=== PATIENT | female | born 1995 ===

== ENCOUNTER 2018-08-21 15:22 | Emergency (ER) | payer BC ==
--- OUTSIDE RECORDS SUMMARY | 2018-08-21 16:02 | XMS REPORT ---
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 Marshal Lobo PayID: [id number] [address] [address] [place] [address] Problems Description No Information Family History Date Family Member(s) Problem(s) Comments Father 63 Father Anxiety Mother 54 Mother No Current Problems Children None Social History Type Date Description Comments Education Highest level completed, 12th taking a gap year in grade [employer]. A's in the last year of college. 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 Cigarette Use Patient is a current 2 cigarettes a day. Used cigarette smoker, smokes to smoke a ppd until every day 07/2016. ETOH Use Denies alcohol use Exercise Type/Frequency Exercises regularly 3-4 times weekly. yoga, pilates, weight training. 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 Contraceptive T380a Fluvoxamine 04/13/ Active Tablets 100mg 90tab take 1 Ania Maleate 2014 s tablet by Brandy, mouth CYBER INCIDENT HANDLER once daily Proair HFA / Active Aerosol 108(90Base 8.500 2 puffs Hernesto F. 0000 ) mcg/Act gm every 4 Shallish, hours as M.D. 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 Levaquin 11/25/ Hx Tablets 500mg 10tab 1 by [email or web address] Carlie Strauss 2016 - s mouth Daysi, 10/30/ every day M.D. 2017 x 10 Prednisone 11/25/ Hx Tablets 20mg 8tabs 2 by [email or web address] Carlie Strauss 2016 - mouth x 4 Daysi, 11/26/ days M.D. 2016 Off Work Note 11/25/ Hx medical [email or web address] Carlie Strauss 11/25-05/06 2016 - excuse. Daysi, 10/30/ M.D. 2017 Augmentin 11/22/ Hx Tablets 875-125mg 20tab 1 by [email or web address] Paula 2015 - s mouth Guilherme, 10/30/ twice a CYBER INCIDENT HANDLER 2016 day with food x 10d Sulfamethoxazole 10/06/ Hx Tablets 800-160mg 14tab 1 by N39.0 Kathy /Trimethoprim DS 2015 - s mouth Len, 10/13/ twice a Afnp-C 2015 day x 7 days Luvox CR / Hx Caps ER 150mg 60cap 1 tab Tomasa 0000 - 24HR s twice a [place], 12/10/ day M.D. 2015 Flax Seed Oil / Hx Capsules 1000mg 1 by Unknown 0000 - mouth 10/22/ twice a 2018 day Medications Administered in Office Medication Date Status Form Strength Qnty SIG Indications Ordering Provider Brief Administered Injection Ania Emotional/Beh 018 NAUN NavaP av Assessment W/ Scoring Doc Per Standard Inst Vital Signs Date Vital Result Comment 08/18/2018 BP Systolic 122 mmHg BP Diastolic 74 mmHg Heart Rate 80 /min Body Temperature 98.6 F Respiratory Rate 16 /min Height 66 inches 5'6" Weight 134.00 lb BMI (Body Mass Index) 21.6 kg/m2 02/16/2018 BP Systolic 120 mmHg BP Diastolic 58 mmHg Heart Rate 82 /min Body Temperature 99.3 F Respiratory Rate 16 /min Height 66 inches 5'6" Weight 135.38 lb BMI (Body Mass Index) 21.8 kg/m2 11/04/2017 BP Systolic 106 mmHg BP Diastolic 70 mmHg Heart Rate 76 /min Body Temperature 97.9 F Respiratory Rate 18 /min Height 66 inches 5'6" Weight 141.00 lb BMI (Body Mass Index) 22.8 kg/m2 10/22/2017 BP Systolic 114 mmHg BP Diastolic 78 mmHg Heart Rate 76 /min Body Temperature 98.2 F Respiratory Rate 16 /min Height 66 inches 5'6" Weight 141.38 lb BMI (Body Mass Index) 22.8 kg/m2 10/30/2016 BP Systolic 110 mmHg BP Diastolic 78 mmHg Heart Rate 84 /min Body Temperature 98.1 F Respiratory Rate 16 /min Height 66 inches 5'6" Weight 146.00 lb BMI (Body Mass Index) 23.6 kg/m2 Body Mass Index Percentile 99 % 11/26/2015 BP Systolic 104 mmHg BP Diastolic 60 mmHg Heart Rate 102 /min Body Temperature 99.0 F Respiratory Rate 16 /min Height 66 inches 5'6" Weight 131.25 lb BMI (Body Mass Index) 21.2 kg/m2 11/23/2015 BP Systolic 110 mmHg BP Diastolic 80 mmHg Heart Rate 68 /min Body Temperature 98.1 F Respiratory Rate 16 /min Height 66 inches 5'6" Weight 131.00 lb BMI (Body Mass Index) 21.1 kg/m2 10/22/2015 BP Systolic 120 mmHg BP Diastolic 80 mmHg Heart Rate 64 /min Body Temperature 98.6 F Respiratory Rate 16 /min Height 66 inches 5'6" Weight 137.00 lb BMI (Body Mass Index) 22.1 kg/m2 10/06/2015 BP Systolic 120 mmHg BP Diastolic 70 mmHg Heart Rate 60 /min Body Temperature 98.0 F Respiratory Rate 16 /min Height 66 inches 5'6" Weight 142.00 lb BMI (Body Mass Index) 22.9 kg/m2 04/12/2015 BP Systolic 100 mmHg BP Diastolic 70 mmHg Heart Rate 80 /min Body Temperature 98.0 F Respiratory Rate 16 /min Height 66 inches 5'6" Weight 158.00 lb BMI (Body Mass Index) 25.5 kg/m2 Body Mass Index Percentile 83 % Weight Percentile 88th Height Percentile 75 % Results Test Date Test Result H/L Range Note Laboratory test 08/18/2018 Quickstrep negative Negative finding Laboratory test 02/16/2018 Cytology Thinprep SEE RESULT BELOW 1 finding w/rfx(cmc) Ua - Micro (Fma) 10/22/2017 Appearance unable to dip Color pt took azo WBC (Fma,Centrex) 1-2 RBC 0-1 Epith occ /Lpf Bacteria trace /Hpf Laboratory test 10/22/2017 Urine Culture And SEE RESULT BELOW 2 finding Sensitivities Complete Blood Count 11/27/2015 WBC 7.7 x10^3/UL 3.6-9.6 RBC 4.90 x10^6/UL 3.90-5.70 HGB 14.4 g/dL 12.1-17.2 HCT 43 % 36-50 MCV 88.0 fL 82.2-97.4 MCH 29.3 pg 27.6-33.3 MCHC 33.3 g/dL 33.0-35.5 RDW 13.3 % 11.6-13.7 PLT 335 x10^3/UL 150-400 MPV 7.1 fL Low 7.4-10.4 Gran # 5.4 x10^3/UL 1.5-7.2 Lymph# 2.1 x10^3/UL 0.7-4.9 [place]# 0.2 x10^3/UL 0.1-0.9 Gran % 68.6 % 42.2-75.2 Lymph % 27.7 % 20.5-51.1 [place]% 3.7 % 1.7-9.3 Comprehensive Metabolic Prof 11/27/2015 Sodium 139 mEq/L 134-149 Potassium 4.2 mEq/L 3.6-5.5 Chloride 101 mEq/L 94-112 Carbon Dioxide 29 mEq/L 21-32 Glucose 88 mg/dL 70-105 BUN 7 mg/dL 6-26 Creatinine 0.6 mg/dL 0.6-1.4 BUN/Creat Ratio 11.7 CALC 8.0-36.0 Calcium 9.4 mg/dL 8.6-10.2 Total Protein 7.4 g/dL 6.4-8.3 Albumin 4.0 g/dL 3.8-5.5 Globulin 3.4 g/dL 2.0-4.8 A/G Ratio 1.2 CALC 0.6-2.3 Alk. Phosphatase 67 U/L 30-110 Alt (SGPT) 11 U/L 7-35 Ast (Sgot) 18 U/L 5-34 Total Bilirubin 0.4 mg/dL 0.2-1.3 GFR Non- >60 ml/min/1.73m^ >=60 GFR >60 ml/min/1.73m^ >=60 Ebv Acute Infection Antibodies 11/27/2015 Ebv Ab Vca, IgM <36.0 U/mL 0.0- 35.9 3, 4 Profile Ebv Early Antigen Ab, IgG 83.3 U/mL High 0.0-8.9 3, 5 Ebv Ab Vca, IgG >600.0 U/mL High 0.0-17.9 3, 6 Ebv Nuclear Antigen Ab, IgG 221.0 U/mL High 0.0-17.9 3, 7 Interpretation: See Comment: 3, 8 Laboratory test finding 11/27/2015 Monospot (Fma/Centrex) NEGATIVE Aerobic Bacterial 11/26/2015 Aerobic Bacterial Culture Final report 9, 10 Culture Result 1 See Comment: 9, 11 Laboratory test finding 11/23/2015 Quickstrep NEGATIVE Negative Throat - Beta Strep Fma NEG @ 48 HRS CBC Electronic ([facility]) 10/22/2015 WBC 6.0 3.6-9.6 RBC 4.41 3.90-5.70 Hemoglobin (Fma/CMC/CTX) 12.7 g/dL 12.1 - 17.2 Hematocrit (Fma/CMC/CTX) 38.9 % 36.1 - 50.3 Platelets 271 10^3/ul 150-400 Lymph% 24.3 % 17.0-48.0 Mixed% 4.2 Neutrophils % 71.5 Mean Corpuscular Vol 88 82.2-97.4 Mean Corpuscular Hemoglobin 28.8 27.6-33.3 Mean Corpuscular Hemo Concen 32.7 32.0-36.0 RDW 13.8 High 11.6-13.7 Mean Platelet Volume 7.0 5.5-11.0 Ua - Micro ([facility]) 10/06/2015 Appearance SLIGHTLY CLOUDY Color YELLOW Glucose, Urine (Fma/CMC/CTX) NEG Bilirubin ICTO:NEG Ketones NEG SP Grav 1.020 Blood LARGE PH 7.0 Protein SSA:NEG Urobil 0.2 Nitrite NEG Leukocytes (Fma/CMC/Centrex) LARGE Hyaline - /Lpf Granular - /Lpf WBC (a,Centrex) 35-40 RBC 35-40 Mucus - /Lpf Epith FEW /Lpf Bacteria 2-3+ /Hpf Amorphous - /Lpf Crystals, Fluid (Fma/CMC/CTX) - Z#Comments - Laboratory test finding 04/12/2015 Vitamin D25 48 30-100 Comprehensive Metabolic Prof 04/12/2015 Sodium 141 mEq/L 134-149 Potassium 4.0 mEq/L 3.6-5.5 Chloride 105 mEq/L 94-112 Carbon Dioxide 26 mEq/L 21-32 Glucose 78 mg/dL 70-105 BUN 12 mg/dL 6-26 Creatinine 0.7 mg/dL 0.6-1.4 BUN/Creat Ratio 17.1 CALC 8.0-36.0 Calcium 9.0 mg/dL 8.6-10.2 Total Protein 7.1 g/dL 6.4-8.3 Albumin 4.5 g/dL 3.8-5.5 Globulin 2.6 g/dL 2.0-4.8 A/G Ratio 1.7 CALC 0.6-2.3 Alk. Phosphatase 66 U/L 30-110 Alt (SGPT) 12 U/L 7-35 Ast (Sgot) 18 U/L 5-34 Total Bilirubin 0.3 mg/dL 0.2-1.3 Laboratory test finding 04/12/2015 Free T4 0.96 ng/dL 0.75-1.54 TSH 0.73 mIU/L 0.50-6.00 CBC Electronic ([facility]) 04/12/2015 WBC 5.1 3.6-9.6 RBC 4.46 3.90-5.70 Hemoglobin (Fma/CMC/CTX) 13.1 g/dL 12.1 - 17.2 Hematocrit (Fma/CMC/CTX) 38.6 % 36.1 - 50.3 Platelets 265 10^3/ul 150-400 Lymph% 38.1 % 17.0-48.0 Mixed% 6.9 Neutrophils % 55.0 Mean Corpuscular Vol 87 82.2-97.4 Mean Corpuscular Hemoglobin 29.5 27.6-33.3 Mean Corpuscular Hemo Concen 34.1 32.0-36.0 RDW 13.7 11.6-13.7 Mean Platelet Volume 6.2 5.5-11.0 1 SEE RESULT BELOW Name: NARDA LOBO : [address]: Ania Nava NP Acct: [id number] Unit: [id number] AGE: 22 Location: [facility] Re02/17/18 SEX: F Status: REG REF SPEC: [id number] DEEPIKA: 02/16/18-[address] [facility] [address]: Ania Nava NP REQ: [id number] RECD: 02/17/18 STATUS: SOUT _ ORDERED: TP IMAGE ANALYS, HPV 16/18 GENE COMMENTS: [id number] Negative for Intraepithelial lesion or Malignancy A. Ectocervical/Endocervical Specimen Adequacy: Satisfactory of evaluation Transformation zone component identified Patient Information: HPV: Thin Layer Pap Test w/reflex to high risk HPV RNA testing when ASCUS HPV 16/18 Genotype Reflex Actual Specimen Date: 02/16/18 Last Menstrual Date: 12/31/17 ?: N Post Menopausal?: N Hysterectomy?: N Previous Abnormal Pap Smears?:N Signed by and Reported on: CRYSTAL Bear(ASCP) 1418 This Pap test was evaluated with the assistance of the CoullPrep Test Imaging System. Due to cytologic findings at the radiation oncologist microscope, comprehensive manual rescreening by a Woodyard Crane Operator may be required. The Pap Smear is a screening test designed to aid in the detection of premalignant and malignant conditions of the uterine cervix. It is not a diagnostic procedure and should not be used as the sole means of detecting cervical cancer. Both false- positive and false- negative reports do occur. Depending on your risk status, a Pap smear should be obtained and evaluated every 1-3 years. END OF REPORT DEPARTMENT OF PATHOLOGY, [address] [place] [address] Eric Brar M.D. Director [facility] # [id number] 2 SEE RESULT BELOW Name: NARDA LOBO : [address]: Alexandra Luo NP Acct: [id number] Unit: [id number] AGE: 22 Location: [facility] Re10/22/17 SEX: F Status: REG REF SPEC: [id number] DEEPIKA: 10/22/17-[address] [facility] [address]: Alexandra Luo NP REQ: [id number] RECD: 10/22/17 STATUS: COMP _ SOURCE: URINE SPDESC: ORDERED: Urine Culture COMMENTS: 1 fiore urine c s tube Procedure Result Reported Site Urine Culture Final 10/23/17- 1722 ML No growth of clinically significant organisms * ML - MAIN LAB ([facility]) . END OF REPORT * ML=Testing performed at Main Lab DEPARTMENT OF PATHOLOGY, [address] [place] [address] Eric Brar M.D. Director [facility] # [id number] 3 1 SST 4 Negative <36.0 Equivocal 36.0 - 43.9 Positive >43.9 5 Hepatitis A, Hepatitis C and HIV antibodies may cross-react with this assay. Negative < 9.0 Equivocal 9.0 - 10.9 Positive >10.9 6 Negative <18.0 Equivocal 18.0 - 21.9 Positive >21.9 7 Negative <18.0 Equivocal 18.0 - 21.9 Positive >21.9 8 EBV Interpretation Chart Interpretation EBV-IgM EA(D)-IgG VCA-IgG EBNA-IgG EBV Seronegative - - - - Early Phase + - - - Acute Primary + +or- + - Infection Convalescence/Past - +or- + + Infection Reactivated +or- + + + Infection + Antibody Present - Antibody Absent 9 SRC:bilateral tonsils 1 co alcaraz swab 10 Source of Specimen: bilateral tonsils 1 co 11 Source of Specimen: bilateral tonsils 1 co Routine respiratory gloria Procedures Date CPT Code Description Status 02/16/2018 36065 Brief Emotional/Behav Assessment W/ Scoring Doc Per Completed Standard Inst 10/22/2015 75103 Finger Or Heel Stick Completed Encounters Type Date Location Provider CPT E/M Dx Office Visit 02/16/2018 6:00p Main Office ESTELLA Cerna 34617 N64.4 F60.5 D69.3 Z01.411 Z13.89 Office Visit 11/04/2017 3:45p [facility] Office ESTELLA Cerna 91946 N64.4 Office Visit 10/22/2017 2:15p [place] [address] R30.0 N39.0 Office Visit 10/30/2016 9:10a [facility] Office Carlie Tavarez M.D. 00388 F60.5 Office Visit 11/26/2015 6:20p Main Office Carlie Tavarez M.D. 47097 J03.80 Office Visit 11/23/2015 11:00a Main Office ESTELLA Shannon 59239 J03.80 Office Visit 10/22/2015 4:00p Main Office Carlie Tavarez M.D. 20822 F60.5 D69.3 F17.210 Office Visit 10/06/2015 10:00a Main Office Jude Reynoso 97882 N39.0 Office Visit 04/12/2015 2:40p [facility] Office Carlie Tavarez M.D. 85194 301.4 268.9 287.31 Plan of Care 08/18/2018 - Ania Brandy, FNPJ02.9 Acute pharyngitis, unspecifiedAllComments:~B_~U_Medication Management~b_~u_ Patient Understands medications he 's taking? Yes No Are there Barriers to Adherence? Yes No Has the patient been asked about herbal supplements and therapies, and OTC meds? Yes No As always, we strongly encourage a healthy diet and makingphysical activity a part of your every day life. If you have questions about how or where to start, please contact the office.
--- OUTSIDE RECORDS SUMMARY | 2018-08-21 16:02 | XMS REPORT ---
:1995 External Reference #:[id number] Author Organization [facility] Address [address] [place] [address] Phone [phone] Care Team Providers Name Role Phone Carlie Tavarez Care Team Information Nurse Ldr Unavailable Carlie Tavarez Primary Care Physician Unavailable Payers Type Date Identification Numbers Payment Provider Subscriber Commercial Policy Number: [id number] Out Of Area [facility] Marshal Lobo PayID: [id number] [address] [address] [place] [address] Problems Description No Information Family History Date [...] sleeps 7 hours a night 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 Contraceptive T380a Fluvoxamine 04/13/ Active Tablets 100mg 90tab take 1 Ania Maleate 2014 s tablet by Brandy, mouth SCIENCE CONSULTANT once daily Proair HFA / Active Aerosol 108(90Base 8.500 2 puffs Hernesto F. 0000 ) mcg/Act gm every 4 Shallish, hours as M.D. 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 Levaquin 11/25/ Hx Tablets 500mg 10tab 1 by [email or web address] Carlie Strauss 2015 - s mouth Daysi, 10/30/ every day M.D. 2017 x 10 Prednisone 11/25/ Hx Tablets 20mg 8tabs 2 by J03.80 Carlie Strauss 2016 - mouth x 4 Daysi, 11/26/ days M.D. 2015 Off Work Note 11/25/ Hx medical Gonzales Strauss 11/25-05/06 2016 - excuse. Daysi, 10/30/ M.D. 2016 Augmentin 11/22/ Hx Tablets 875-125mg 20tab 1 by J03.80 Paula 2015 - s mouth Guilherme, 10/30/ twice a SCIENCE CONSULTANT 2016 day with food x 10d Sulfamethoxazole 10/06/ Hx Tablets 800-160mg 14tab 1 by N39.0 Kathy /Trimethoprim DS 2015 - s mouth Len, 10/13/ twice a Afnp-C 2015 day x 7 days Luvox CR / Hx Caps ER 150mg 60cap 1 tab Tomasa 0000 - 24HR s twice a [place], 12/10/ day M.D. 2015 Flax Seed Oil / Hx Capsules 1000mg 1 by Unknown 0000 - mouth 10/22/ twice a 2018 day Medications Administered in Office Medication Date Status Form Strength Qnty SIG Indications Ordering Provider Brief Administered Injection Ania Emotional/Beh 018 Brandy, SCIENCE CONSULTANT av Assessment W/ Scoring Doc Per Standard Inst Vital Signs Date Vital Result Comment 08/20/2018 BP Systolic 102 mmHg BP Diastolic 62 mmHg Heart Rate 88 /min Body Temperature 98.4 F Height 66 inches 5'6" Weight 131.00 lb BMI (Body Mass Index) 21.1 kg/m2 08/18/2018 BP Systolic 122 mmHg BP Diastolic [...] Test Result H/L Range Note Laboratory test 08/20/2018 Quickstrep negative Negative finding Laboratory test 08/18/2018 Quickstrep negative Negative finding [...] 5.4 x10^3/UL 1.5-7.2 Lymph# 2.1 x10^3/UL 0.7-4.9 [place]# 0.2 x10^3/UL 0.1-0.9 Gran % 68.6 % 42.2-75.2 Lymph % 27.7 % 20.5-51.1 [place]% 3.7 % 1.7-9.3 Comprehensive Metabolic Prof 11/27/2015 [...] Fma NEG @ 48 HRS CBC Electronic (a) 10/22/2015 WBC 6.0 3.6-9.6 RBC 4.41 3.90-5.70 Hemoglobin (Fma/CMC/CTX) 12.7 g/dL 12.1 - 17.2 Hematocrit (Fma/CMC/CTX) 38.9 % 36.1 - 50.3 Platelets 271 10^3/ul 150-400 Lymph% 24.3 % 17.0-48.0 Mixed% 4.2 Neutrophils % 71.5 Mean Corpuscular Vol 88 82.2-97.4 Mean Corpuscular Hemoglobin 28.8 27.6-33.3 Mean Corpuscular Hemo Concen 32.7 32.0-36.0 RDW 13.8 High 11.6-13.7 Mean Platelet Volume 7.0 5.5-11.0 Ua - Micro ([facility]) 10/06/2015 Appearance SLIGHTLY CLOUDY Color YELLOW Glucose, Urine (a/CMC/CTX) NEG Bilirubin ICTO:NEG Ketones NEG SP Grav 1.020 Blood LARGE PH 7.0 Protein SSA:NEG Urobil 0.2 Nitrite NEG Leukocytes (a/CMC/Centrex) LARGE Hyaline - /Lpf Granular - /Lpf WBC ([facility],Centrex) 35-40 RBC 35-40 Mucus - /Lpf Epith FEW /Lpf Bacteria 2-3+ /Hpf Amorphous - /Lpf Crystals, Fluid (a/CMC/CTX) - Z#Comments - Laboratory test finding 04/12/2015 [...] 0.75-1.54 TSH 0.73 mIU/L 0.50-6.00 CBC Electronic ([facility]) 04/12/2015 WBC 5.1 3.6-9.6 RBC 4.46 3.90-5.70 [...] [address]: Ania Nava NP Acct: [id number] Unit: [id number] AGE: 22 Location: [facility] Re02/17/18 SEX: F Status: REG REF SPEC: [id number] DEEPIKA: 02/16/18-[address]: Ania Nava NP REQ: [id number] RECD: 02/17/18 STATUS: SOUT _ ORDERED: TP IMAGE ANALYS, HPV 16/18 GENE COMMENTS: [id number] Negative for Intraepithelial lesion or Malignancy A. Ectocervical/Endocervical Specimen Adequacy: Satisfactory of evaluation Transformation zone component identified Patient Information: HPV: Thin Layer Pap Test w/reflex to high risk HPV RNA testing when ASCUS HPV 16/18 Genotype Reflex Actual Specimen Date: 02/16/18 Last Menstrual Date: 12/31/17 ?: N Post Menopausal?: N Hysterectomy?: N Previous Abnormal Pap Smears?:N Signed by and Reported on: CRYSTAL Bear(ASCP) 141 This Pap test was evaluated with the assistance of the TrekeaPrep Test Imaging System. Due to cytologic findings at the industrial relations manager microscope, comprehensive manual rescreening by a Plant Culture Manager may be required. The Pap Smear is [...] years. END OF REPORT DEPARTMENT OF PATHOLOGY, [address] [place] [address] Eric Brar M.D. Director [facility] # [id number] 2 SEE RESULT BELOW Name: NARDA LOBO : [address]: Alexandra Luo NP Acct: [id number] Unit: [id number] AGE: 22 Location: [facility] Re10/22/17 SEX: F Status: REG REF SPEC: [id number] DEEPIKA: 10/22/17-[address]: Alexandra Luo NP REQ: [id number] RECD: 10/22/17 STATUS: COMP _ SOURCE: URINE SPDESC: ORDERED: Urine Culture COMMENTS: 1 fiore urine c s tube Procedure Result Reported Site Urine Culture Final 10/23/17- 1722 ML No growth of clinically significant organisms * ML - MAIN LAB ([facility]) . END OF REPORT * ML=Testing performed at Main Lab DEPARTMENT OF PATHOLOGY, [address] [place] [address] Eric Brar M.D. Director [facility] # [id number] 3 1 SST 4 Negative <36.0 Equivocal [...] Procedures Date CPT Code Description Status 02/16/2018 11136 Brief Emotional/Behav Assessment W/ Scoring Doc Per Completed Standard Inst 10/22/2015 29188 Finger Or Heel Stick Completed Encounters Type Date Location Provider CPT E/M Dx Office Visit 08/18/2018 3:00p [facility] Office ESTELLA Cerna 60019 J02.9 Office Visit 02/16/2018 6:00p Main Office ESTELLA Cerna 69784 N64.4 F60.5 D69.3 Z01.411 Z13.89 Office Visit 11/04/2017 3:45p [facility] Office ESTELLA Cerna 81502 N64.4 Office Visit 10/22/2017 2:15p [place] [address] R30.0 N39.0 Office Visit 10/30/2016 9:10a [facility] Office Carlie Tavarez M.D. 86121 F60.5 Office Visit 11/26/2015 6:20p Main Office Carlie Tavarez M.D. 62323 J03.80 Office Visit 11/23/2015 11:00a Main Office Paula Vanegas, SCIENCE CONSULTANT 63541 J03.80 Office Visit 10/22/2015 4:00p Main Office Carlie Tavarez M.D. 13134 F60.5 D69.3 F17.210 Office Visit 10/06/2015 10:00a Main Office Kathy Harrington, Afnp-C 77834 N39.0 Office Visit 04/12/2015 2:40p [facility] Office Carlie Tavarez M.D. 94361 301.4 268.9 287.31 Plan of Care 08/20/2018 - Ania Nava, FNPJ02.9 Acute pharyngitis, unspecifiedNew Medication:Augmentin 875-125 mgR50.9 Fever, ojrwhynodtfO45.90 Acute tonsillitis , unspecifiedAllComments:~B_~U_Medication Management~b_~u_ Patient Understands medications he 's [...]
[2018-08-21] MEDS ORDERED: NS 0.9% 1000 ML* 1,000 ML IV ONE (16:15)
[2018-08-21 16:31] LABS: ABS Basophils 0 10^3/ul (0-0.2); ABS Eosinophils 0 10^3/ul (0-0.6); ABS Lymphocytes 1.4 10^3/ul (1.0-4.8); ABS Neutrophils 5.2 10^3/ul (1.5-7.7); ABS Nucleated RBC 0 10^3/ul; Eosinophil % 0.2 %; Hematocrit 39 % (35-47); Lymphocyte % 18.6 %; Mean Corpuscular HGB Conc 33 g/dl (31-36); Mean Corpuscular Hemoglobin 29 pg (27-31); Mean Corpuscular Volume 89 fL (80-97); Mean Platelet Volume 7.8 fL (7.4-10.4); Nucleated Red Blood Cells % 0; Platelet Count 176 10^3/ul (150-450); Red Blood Count 4.43 10^6/ul (4.00-5.40); Red Cell Distribution Width 14 % (10.5-15); White Blood Count 7.5 10^3/ul (3.5-10.8)
--- NOTE | 2018-08-21 16:36 | ED ---
Throat Pain/Nasal Congestion - HPI Summary HPI Summary: Patient here with sore throat 1 week. When this started a week ago, she was tested for strep throat at her PCP's office which was negative - dx'd w/ viral pharyngitis and guided with supportive care. She returned to her doctor's office yesterday as she felt her sore throat was getting worse. She was started on Augmentin and told if she does not get better by today to come to the emergency department for ENT to fani her throat. Has had 3 doses of augmentin. Reports her Rt ear is sore now as well - feels full -no otorrhea. Chills and low grade fever. Was taking aleve but switched to ibuprofen which seemed to work better. She is still able to breathe and swallow although swallowing has been painful. She is drinking fluids, soup broth, etc. Denies ab pain, nausea, vomiting. Has developed diarrhea since taking Augmentin. H/o strep and mono -has not been tested for mono lately. NOTE: h/o ITP. 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 NOTE: History of mood disorder including anxiety, depression and OCD. She was on a full cocktail of psych meds at one point however his finger self down to 1 med at a reasonably low dose. She is been in a good "headspace lately". Would like to refrain from steroids if possible although she's never had them in the past. - History of Current Complaint Chief Complaint: EDThroatPain Time Seen by Provider: 08/21/18 15:42 Hx Obtained From: Patient, Family/D[employer] Icer - mom - Allergies/Home Medications Allergies/Adverse Reactions: Allergies Allergy/AdvReac Type Severity Reaction Status Date / Time No Known Allergies Allergy Verified 08/21/18 15:28 Home Medications: Home Medications Fluvoxamine Maleate [Fluvoxamine Maleate ER] 1 tab PO DAILY 08/21/18 [History Confirmed 08/21/18] PMH/Surg Hx/FS Hx/Imm Hx Previously Healthy: Yes Endocrine/Hematology History: Reports: Hx Blood Disorders - h/o ITP - in remission per pt and mom - has been cleared to take NSAID's Denies: Hx Anticoagulant Therapy Psychiatric History: Reports: Hx Anxiety, Hx Depression, Other Psychiatric Issues/Disorders - OCD - Immunization History Immunizations Up to Date: Yes Infectious Disease History: No Infectious Disease History: Denies: Traveled Outside the [place] in Last 30 Days - Social History Occupation: Employed Full-time Lives: With Family Alcohol Use: Rare Substance Use Type: Reports: Marijuana - daily for anxiety Hx Tobacco Use: Yes - h/o cigarette smoking Smoking Status (MU): Current Every Day Smoker - vaping Review of Systems Positive: Fever, Chills Eyes: Negative Positive: Sore Throat, Ear Ache. Negative: Nasal Discharge Cardiovascular: Negative Respiratory: Negative Positive: Diarrhea. Negative: Abdominal Pain, Vomiting, Nausea Positive: no symptoms reported Musculoskeletal: Negative Skin: Negative Negative: Rash Neurological: Negative Psychological: Normal - concerned but feels she in a "good headspace" All Other Systems Reviewed And Are Negative: Yes Physical Exam Triage Information Reviewed: Yes Vital Signs On Initial Exam: Initial Vitals Temp Pulse Resp BP Pulse Ox 98.3 F 67 16 114/72 100 08/21/18 15:29 08/21/18 15:29 08/21/18 15:29 08/21/18 15:29 08/21/18 15:29 Vital Signs Reviewed: Yes Appearance: Positive: Well-Appearing, No Pain Distress, Well-Nourished Skin: Positive: Warm, Skin Color Reflects Adequate Perfusion, Dry - no rash Head/Face: Positive: Normal Head/Face Inspection Eyes: Positive: Normal, EOMI, MAYELIN, Conjunctiva Clear. Negative: Conjunctiva Inflammed, Discharge ENT: Positive: Hearing grossly normal, Pharynx normal, TMs normal, Tonsillar swelling, Tonsillar exudate - Rt + 3-4 > Lt + 2-3; exudate is scant, Uvula midline. Negative: Nasal congestion, Nasal drainage, Trismus, Muffled voice, Hoarse voice, Sinus tenderness Neck: Positive: Supple, Nontender, Enlarged Nodes @ - shotty cc LN's Respiratory/Lung Sounds: Positive: Clear to Auscultation, Breath Sounds Present. Negative: Stridor Cardiovascular: Positive: Normal, RRR, S1, S2. Negative: Murmur, Rub Abdomen Description: Positive: Nontender, No Organomegaly, Soft Bowel Sounds: Positive: Present Musculoskeletal: Positive: Normal, Strength/ROM Intact Neurological: Positive: Normal, Sensory/Motor Intact, Alert, Oriented to Person Place, Time, CN Intact II-III Psychiatric: Positive: Anxious Diagnostics - Vital Signs Vital Signs Temp Pulse Resp BP Pulse Ox 08/21/18 15:49 99.7 F 08/21/18 15:40 90 114/71 100 08/21/18 15:29 98.3 F 67 16 114/72 100 - Laboratory Result Diagrams: 08/21/18 16:24 08/21/18 16:24 Lab Statement: Any lab studies that have been ordered have been reviewed, and results considered in the medical decision making process. Re-Evaluation - Re-Evaluation First Eval Change: Improved - pt reports improved pain/swelling after IVF and 10 mins s/p toradol while eating chicken soup EENT Course/Dx - Course Course Of Treatment: Will wait on toradol until platelets return. UPDATE: WNL - toradol ordered. Will wait on steroid to see how she responds to toradol, IVF and anbx. Will choose anbx based on mono test results. UPDATE: mono and strep neg - clindamycin ordered as she does have clinical tonsilitis and CRP 135 w/o clinical signs of pharyngeal or deep space abscess. If worse, would recommend CT for further investigation. pt has relief w/ IVF and toradol - discussed w/ pt and we both agree to refrain from prednisone given her increased risk with significant mood d/o. Advised to rest and continue care plan - will f/u w/ ENT this week as she has recurrent tonsilitis. Discussed danger s/sx of when to return to ED - pt and mom agree w/ plan. - Diagnoses Provider Diagnoses: Acute infective tonsillitis Discharge - Sign-Out/Discharge Documenting (check all that apply): Patient Departure - Discharge Plan Condition: Stable Disposition: HOME Prescriptions: Clindamycin HCl 300 mg PO TID #29 capsule Patient Education Materials: Tonsillitis (ED) Forms: *Work Release Referrals: Juan Russell MD [Medical Doctor] - Additional Instructions: Stop augmentin and start clindamycin - complete course unless directed otherwise by ENT. Call ENT Thursday to schedule an appointment to discuss recurrent tonsilitis. Continue ibuprofen 600mg every 6 hours with food as needed for pain/swelling *If you develop difficulty breathing or swallowing, return to the ED Try the following for comfort care: Salt water throat gargles 2-4 x day Drink you body weight in ounces of water every day Sleep 8+ hours per night Avoid Dairy and sugar Hot herbal/decaf tea with lemon & honey Chicken broth (preferably organic, free range chicken) Humidifier in house, but especially near bed at night Keep home temperature at 68F or less to reduce dryness Use Throat lozenges as needed for pain Try a facial steam with or without eucalyptus essential oil or Emmanuel's Vapor rub for congestion Avoid smoke, candles, perfumes, colognes, scented soaps/detergents , air fresheners and cleaning chemicals as these can cause airway irritation and trigger coughing Start Vitamin D3 5000iu and Vitamin C 1000mg every day while sick unless your Vit D level is normal already Start probiotics in between antibiotics (ie. Yogurt and/or capsules of L. acidophilus, L. bifidus, L. casei, etc) - Billing Disposition and Condition Condition: STABLE Disposition: Home
[2018-08-21 16:49] LABS: EGFR Non-African American 109.2 (>60)
[2018-08-21] MEDS ORDERED: Clindamycin 600 MG IVPREMIX(* 600 MG/50 ML SDV IV ONE (18:03)
[2018-08-21] MEDS ORDERED: Ketorolac INJ* 30 MG/ML 1 ML VIAL IV PUSH ONE (18:03)
[2018-08-21 19:08] VITALS: BP 107/71
== END 2018-08-21 19:06 | disposition home or self-care (01) ==
LOC: ED 15:22
DX: J03.90 Acute tonsillitis, unspecified (principal); F17.290 Nicotine dependence, other tobacco product, uncomplicated
CPT/HCPCS: 36415; 80053; 83605; 84145; 85025; 86140; 86308; 87070; 87651; 96361; 96374; 99282; J1885